=== PATIENT | female | born 1975 | race Caucasian/White ===

== ENCOUNTER 2017-01-15 19:01 | Inpatient (IN) | payer SELFPAY ==
[2017-01-15] MEDS ORDERED: ONDANSETRON HCL INJ/PF 4 MG/2 ML SDV IV ONE (19:58)
[2017-01-15] MEDS ORDERED: MORPHINE SULFATE 10 MG/ML INJ IV ONE ×2 (19:58→21:51)
--- NOTE | 2017-01-15 19:59 | ER Document Report ---
ED GI/ - General Chief Complaint: Epigastric Pain Stated Complaint: BACK PAIN Time Seen by Provider: 01/15/17 19:34 Information source: Patient TRAVEL OUTSIDE OF THE [place] IN LAST 30 DAYS: No - HPI Patient complains to provider of: Abdominal pain Onset: Just prior to arrival Timing/Duration: Sudden Quality of pain: Pressure, Sharp Severity at maximum: Severe Severity in ED: Severe Pain Level: 5 Location: Epigastric Associated symptoms: Nausea, Vomiting Exacerbated by: Denies Relieved by: Denies Similar symptoms previously: No Recently seen / treated by doctor: No Notes: 01/16/17 01:10 Patient is a 41-year-old female with no past medical history presenting to the emergency room complaining of severe epigastric abdominal pain associated with nausea and vomiting that started approximately 1 hour prior to arrival, she denies any fever, no history of similar symptoms previously, she last ate some cheese at 5:30 PM - Related Data Allergies/Adverse Reactions: codeine Allergy (Verified 01/15/17 19:17) Penicillins Allergy (Verified 01/15/17 19:17) phenytoin [From Dilantin] Allergy (Verified 01/15/17 19:17) Past Medical History - General Information source: Patient - Social History Smoking Status: Current Every Day Smoker Family History: Reviewed & Not Pertinent Renal/ Medical History: Denies: Hx Peritoneal Dialysis Review of Systems - Review of Systems Constitutional: No symptoms reported EENT: No symptoms reported Cardiovascular: No symptoms reported Respiratory: No symptoms reported Gastrointestinal: See HPI Genitourinary: No symptoms reported Female Genitourinary: No symptoms reported Musculoskeletal: No symptoms reported Skin: No symptoms reported Hematologic/Lymphatic: No symptoms reported Neurological/Psychological: No symptoms reported -: Yes All other systems reviewed and negative Physical Exam - Vital signs Vitals: Temp Pulse Resp BP Pulse Ox 98.4 F 112 H 20 99/77 L 98 01/15/17 19:19 01/15/17 19:19 01/15/17 19:19 01/15/17 19:19 01/15/17 19:19 Interpretation: Normal - General General appearance: Alert In distress: Moderate - Appears in pain - HEENT Head: Normocephalic, Atraumatic Eyes: Normal Pupils: PERRL - Respiratory Respiratory status: No respiratory distress Chest status: Nontender Breath sounds: Normal Chest palpation: Normal - Cardiovascular Rhythm: Regular Heart sounds: Normal auscultation Murmur: No - Abdominal Inspection: Normal Distension: Distended Bowel sounds: Normal Tenderness: Tender - Epigastric Organomegaly: No organomegaly - Back Back: Normal, Nontender - Extremities General upper extremity: Normal inspection, Nontender, Normal color, Normal ROM , Normal temperature General lower extremity: Normal inspection, Nontender, Normal color, Normal ROM , Normal temperature, Normal weight bearing. No: Yany's sign - Neurological Neuro grossly intact: Yes Cognition: Normal Orientation: AAOx4 Nati Coma Scale Eye Opening: Spontaneous Nati Coma Scale Verbal: Oriented Nati Coma Scale Motor: Obeys Commands Hartman Coma Scale Total: 15 Speech: Normal Motor strength normal: LUE, RUE, LLE, RLE Sensory: Normal - Psychological Associated symptoms: Normal affect, Normal mood - Skin Skin Temperature: Warm Skin Moisture: Dry Skin Color: Normal Course - Re-evaluation Re-evalutation: 01/16/17 01:11 Patient has leukocytosis, with pain in the upper abdomen, gallbladder ultrasound is unremarkable, however I was concerned for other acute abdominal pathology and sent patient for a noncontrasted CT scan, the radiologist called to report that patient has free air in the abdomen, I did reevaluate patient and she is resting comfortably with stable vital signs, the surgeon was immediately consulted who will admit patient anterior to the OR, patient does admit a history of ulcers and use of Goody powders - Vital Signs Vital signs: Temp Pulse Resp BP Pulse Ox 98.4 F 112 H 20 99/77 L 98 01/15/17 19:19 01/15/17 19:19 01/15/17 19:19 01/15/17 19:19 01/15/17 19:19 - Laboratory Result Diagrams: 01/15/17 19:50 01/15/17 19:50 Laboratory results interpreted by me: 01/15/17 01/15/17 19:50 19:50 WBC 15.4 H Absolute Neutrophils 11.8 H Glucose 120 H - Diagnostic Test Radiology reviewed: Image reviewed, Reports reviewed - EKG Interpretation by Oh EKG shows normal: Sinus rhythm Rate: Normal Rhythm: NSR - Transfer of Care Care transferred to following provider: Dr Lunsford Discharge - Discharge Clinical Impression: Perforated viscus Condition: Serious Disposition: ADMITTED INPATIENT Admitting Provider: Surgicalist Unit Admitted: Surgical Floor
[2017-01-15 20:04] LABS: ABSOLUTE BASOPHILS # (AUTO) 0.1 10^3/uL (0.0-0.2); ABSOLUTE EOSINOPHILS # (AUTO) 0.3 10^3/uL (0.0-0.6); ABSOLUTE LYMPHOCYTES (AUTO) 2.6 10^3/uL (0.5-4.7); ABSOLUTE MONOCYTES (AUTO) 0.6 10^3/uL (0.1-1.4); ABSOLUTE NEUT (AUTO) 11.8 10^3/uL (1.7-8.2); BASOPHILS % (AUTO) 0.7 % (0-2); EOSINOPHILS % (AUTO) 1.9 % (0-6); HEMATOCRIT 38.2 % (36.0-47.0); HEMOGLOBIN 13.1 g/dL (12.0-15.5); HGB HCT DIFFERENCE 1.1; MEAN CORPUSCULAR HEMOGLOBIN 32.2 pg (27.0-33.4); MEAN CORPUSCULAR HGB CONC 34.3 g/dL (32.0-36.0); MEAN CORPUSCULAR VOLUME 94 fl (80-97); MONOCYTES % (AUTO) 3.8 % (3-13); RED BLOOD COUNT 4.07 10^6/uL (3.72-5.28); RED CELL DISTRIBUTION WIDTH 13.7 % (11.5-14.0); SEGMENTED NEUTROPHILS % (AUTO) 76.6 % (42-78); WHITE BLOOD COUNT 15.4 10^3/uL (4.0-10.5)
[2017-01-15] MEDS: NORMAL SALINE 1000 ML 1,000 ML IV PRN ×2 (20:15→22:02)
[2017-01-15 20:19] LABS: ALANINE AMINOTRANSFERASE 23 U/L (9-52); ALBUMIN 4.2 g/dL (3.5-5.0); ALKALINE PHOSPHATASE 82 U/L (38-126); ANION GAP 10 (5-19); ASPARTATE AMINO TRANSFERASE 20 U/L (14-36); BILIRUBIN,DIRECT 0.4 mg/dL (0.0-0.4); BILIRUBIN,TOTAL 0.4 mg/dL (0.2-1.3); BLOOD UREA NITROGEN 9 mg/dL (7-20); CALCIUM 9.6 mg/dL (8.4-10.2); CARBON DIOXIDE 26 mmol/L (22-30); CHLORIDE 104 mmol/L (98-107); CREATININE RESULT 0.75 mg/dL (0.52-1.25); GLUCOSE 120 mg/dL (75-110); POTASSIUM 3.6 mmol/L (3.6-5.0); SODIUM 139.9 mmol/L (137-145); TOTAL PROTEIN 7.3 g/dL (6.3-8.2)
--- NOTE | 2017-01-15 21:16 | RADIOLOGY REPORT (SQ) ---
EXAM DESCRIPTION: U/S ABDOMEN LIMITED W/O DOP COMPLETED DATE/TIME: 01/15/2017 9:07 pm REASON FOR STUDY: pain COMPARISON: None. TECHNIQUE: Dynamic and static grayscale images acquired of the abdomen and recorded on PACS. Additio nal selected color Doppler and spectral images recorded. LIMITATIONS: None. FINDINGS: PANCREAS: No masses. Visualized pancreatic duct normal caliber. LIVER: No masses. Echotexture normal. LIVER VASCULATURE: Normal directional flow of the main portal vein and hepatic veins. GALLBLADDER: No stones. Normal wall thickness. No pericholecystic fluid. ULTRASOUND-DETECTED CAI'S SIGN: Negative. INTRAHEPATIC DUCTS AND COMMON DUCT: CBD and intrahepatic ducts normal caliber. No filling defects. INFERIOR VENA CAVA: Normal flow. AORTA: No aneurysm. RIGHT KIDNEY: Normal size. Normal echogenicity. No solid or suspicious masses. No hydronephrosis. No calcifications. PERITONEAL AND RIGHT PLEURAL SPACE: No ascites or effusions. OTHER: No other significant findings. IMPRESSION: NORMAL RIGHT UPPER QUADRANT ULTRASOUND. TECHNICAL DOCUMENTATION: JOB ID: [id number] [employer]- All Rights Reserved
[2017-01-15] MEDS ORDERED: NORMAL SALINE 1000 ML 1,000 ML IV PRN ×2 (21:51→23:45)
--- NOTE | 2017-01-15 23:21 | EKG REPORT ---
SEVERITY:- BORDERLINE ECG - SINUS RHYTHM PROBABLE LEFT ATRIAL ABNORMALITY : Confirmed by: Kenya Back 15-Jan-2017 23:20:22
[2017-01-15] MEDS ORDERED: CIPROFLOXACIN 400 MG/D5W RTU 400 MG/200 ML RTUPB IV ONE (23:44)
[2017-01-15] MEDS ORDERED: HYDROMORPHONE HCL INJ/PF 2 MG/ML AMPULE IV ONE (23:44)
[2017-01-15] MEDS ORDERED: METRONIDAZOLE RTU 500 MG/NS 100 ML IV ONE (23:44)
--- NOTE | 2017-01-15 23:44 | RADIOLOGY REPORT (SQ) ---
EXAM DESCRIPTION: CT LTD RENAL STONE PROTOCOL ON COMPLETED DATE/TIME: 01/15/2017 11:26 pm REASON FOR STUDY: B flank pain COMPARISON: None. TECHNIQUE: CT scan of the abdomen and pelvis performed without intravenous or oral contrast. Images reviewed with lung, soft tissue, and bone windows. Reconstructed coronal and sagittal MPR images revi ewed. All images stored on PACS. All CT scanners at this facility use dose modulation, iterative reconstruction, and/or weight based d osing when appropriate to reduce radiation dose to as low as reasonably achievable (ALARA). [facility]: Dose Right [facility]: CareDose [facility]: Dose Right [facility]: Teradose 4D [facility]: Smart Alchimer RADIATION DOSE: Up-to-date CT equipment and radiation dose reduction techniques were employed. CTDIv ol: 7.2 mGy. DLP: 416 mGy-cm.mGy. LIMITATIONS: None. FINDINGS: LOWER CHEST: Patchy parenchymal opacities at both lung bases. NON-CONTRASTED LIVER, SPLEEN, ADRENALS: Evaluation limited by lack of IV contrast. No identified sign ificant masses. PANCREAS: No masses. No peripancreatic inflammatory changes. GALLBLADDER: No identified stones by CT criteria. No inflammatory changes to suggest cholecystitis. RIGHT KIDNEY AND URETER: No suspicious masses. Assessment limited by lack of IV contrast. No signif icant calcifications. No hydronephrosis or hydroureter. LEFT KIDNEY AND URETER: No suspicious masses. Assessment limited by lack of IV contrast. No signifi cant calcifications. No hydronephrosis or hydroureter. AORTA AND RETROPERITONEUM: No aneurysm. No retroperitoneal masses or adenopathy. BOWEL AND PERITONEAL CAVITY: No obvious masses or inflammatory changes. Extensive free intraperitone al air. No identified slight of the viscus rupture. APPENDIX: Not visualized. PELVIS, BLADDER, AND ABDOMINAL WALL:Small amount of free fluid in the pelvis. The right BTL clip is in place. The left BTL clip is free within the pelvis. BONES: No significant findings. OTHER: No other significant finding. IMPRESSION: Extensive free intraperitoneal air. Left BTL clip is free within the pelvis. COMMENT: Pertinent findings on the imaging study reported as a CRITICAL RESULT to PELON BRIGGS DO at23:38 on 01/15/2017. Category of Critical Result: Free air in the abdomen TECHNICAL DOCUMENTATION: JOB ID: [id number] Quality ID # [id number]: Final reports with documentation of one or more dose reduction techniques (e.g., Au tomated exposure control, adjustment of the mA and/or kV according to patient size, use of iterative reconstruction technique) 2010 [employer]- All Rights Reserved
[2017-01-15 23:51] LABS: APPEARANCE,URINE CLOUDY; BILIRUBIN,URINE NEGATIVE (NEGATIVE); GLUCOSE, URINE NEGATIVE (NEGATIVE); KETONES,URINE NEGATIVE (NEGATIVE); LEUKOCYTE ESTERASE,URINE NEGATIVE (NEGATIVE); NITRITE,URINE NEGATIVE (NEGATIVE); PROTEIN,URINE NEGATIVE (NEGATIVE); URINE SPECIFIC GRAVITY 1.011; UROBILINOGEN,URINE NEGATIVE mg/dL (<2.0)
[2017-01-16] MEDS ORDERED: FAMOTIDINE INJ/PF 20 MG/2 ML SDV IV ONE (00:27)
[2017-01-16] MEDS ORDERED: NORMAL SALINE 1000 ML 1,000 ML IV PRN (00:43)
[2017-01-16] MEDS ORDERED: ONDANSETRON HCL INJ/PF 4 MG/2 ML SDV IV PRN (00:43)
--- NOTE | 2017-01-16 00:43 | PDOC H&P ---
History of Present Illness Admission Date/PCP: 01/15/17 23:49 Patient complains of: Sudden onset of severe abdominal pain 7 hours prior to admission History of Present Illness: MARK COLEY is a 41 year old female 7 hour history of severe abdominal pain. Found to have an acute abdomen secondary to perforated PUD secondary to abuse of "Goody Powders: or powdered ASA. Pt. to be taken to O.R for Prieto Patch or omental plication of perforated PUD. Dictation # [id number] Social History Smoking Status: Current Every Day Smoker Family History Parental Family History Reviewed: No Children Family History Reviewed: No Sibling(s) Family History Reviewed.: No Medication/Allergy Allergies/Adverse Reactions: codeine Allergy (Verified 01/15/17 19:17) Penicillins Allergy (Verified 01/15/17 19:17) phenytoin [From Dilantin] Allergy (Verified 01/15/17 19:17) Physical Exam Vital Signs: Temp Pulse Resp BP Pulse Ox 98.4 F 112 H 20 99/77 L 98 01/15/17 19:19 01/15/17 19:19 01/15/17 19:19 01/15/17 19:19 01/15/17 19:19 General appearance: PRESENT: severe distress Eye exam: PRESENT: conjunctiva pink Mouth exam: PRESENT: moist, neck supple Neck exam: PRESENT: full ROM. ABSENT: JVD, lymphadenopathy, tenderness, thyromegaly, tracheal deviation Cardiovascular exam: PRESENT: tachycardia GI/Abdominal exam: PRESENT: diminished bowel sounds, firm, guarding, rebound, tenderness Psychiatric exam: PRESENT: anxious Results Impressions: Abdomen Ultrasound 01/15/17 19:58 IMPRESSION: NORMAL RIGHT UPPER QUADRANT ULTRASOUND. Limited or Localized CT 01/15/17 21:51 IMPRESSION: Extensive free intraperitoneal air. Left BTL clip is free within the pelvis. Assessment & Plan - Plan Summary Plan Summary: Exploratory lap for perforated viscus
[2017-01-16] MEDS ORDERED: PHARMACY COMMUNICATION ORDER MC NR (00:45)
[2017-01-16] MEDS ORDERED: FENTANYL CITRATE INJ/PF 100 MCG/2 ML AMPUL ONE ×2 (01:11)
[2017-01-16] MEDS ORDERED: MIDAZOLAM 2 MG/2 ML INJ ONE (01:12)
[2017-01-16] MEDS ORDERED: PROPOFOL INJ 200 MG/20 ML VIAL IV ONE (01:12)
[2017-01-16] MEDS ORDERED: ACETAMINOPHEN 100 ML IV ONE (01:12)
[2017-01-16] MEDS ORDERED: MORPHINE SULFATE 10 MG/ML INJ ONE (01:12)
--- NOTE | 2017-01-16 01:47 | HISTORY AND PHYSICAL E ---
History and Physical NAME: MARK COLEY : 1975 AGE: 41Y ADMITTED: 01/16/2017 ROOM: ED14 REASON FOR ADMISSION: Perforated peptic ulcer disease. HISTORY OF PRESENT ILLNESS: This 41-year-old female was in her usual state of health until approximately 5:00 this evening, when she developed the sudden onset of upper abdominal pain without nausea or vomiting. Patient states the pain radiates to her shoulders, and is 9/10 in intensity. The patient presented to the emergency room in acute distress. Patient denies any previous history of such pain, and denies any melena, hematemesis, coffee-ground vomitus, or hematochezia. Of note, the patient takes Goody's Powder or crushes aspirin to an excess degree for various pains in her back, feet, etc. 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 Patient, again, presented to the hospital in acute distress, and on examination was found to have markedly tender abdomen with guarding and rebound. The patient underwent laboratory evaluation patient's electrolytes were essentially within normal limits except for elevated glucose at 120, and the patient's CT scan of the abdomen revealed extensive free intraperitoneal air, suggesting peptic ulcer disease. For this reason, a Surgical referral was made. PAST MEDICAL HISTORY: Patient denies any diabetes mellitus, hypertension, cardiac, renal, pulmonary, or liver disease. There is no history of any bleeding tendency or anesthesia problems in her family. ALLERGIES: Patient is allergic to codeine, penicillin, and Dilantin. REVIEW OF SYSTEMS: Patient has no symptoms referable to the ears, nose, and throat, respiratory, cardiovascular, or genitourinary systems. No history of any problems related to the integumentary, lymphatic, endocrine, or psychiatric systems. Patient does have a history of abdominal pain as of late, and complains of continued back pain and pain in her feet for which takes the crushed aspirin. PHYSICAL EXAMINATION: GENERAL: Reveals a 41-year-old female who is normally nourished, normally developed, who is in moderate distress. VITAL SIGNS: Temperature 98.4, heart rate 112, blood pressure 99/77, respirations are 20. HEENT: There is no conjunctival pallor or scleral icterus. Mucous membranes are moist and pink. NECK: Supple without nodes, masses, thyromegaly, JVD, or bruits. Trachea is midline. CHEST WALL: Shows good excursion. LUNGS: Clear anteriorly with good air entry bilaterally. CARDIOVASCULAR: Patient is tachycardic. Patient appeared to be in sinus tach. There are no murmurs or gallops. ABDOMEN: Flat, soft, with marked epigastric and upper abdominal tenderness with guarding and rebound. Bowel sounds are hypoactive. There are no hernias or bruits. No abdominal scars are noted. EXTREMITIES: Full range of motion without edema or tenderness. LABORATORY DATA: Has been reviewed, as noted above. CT scan has been reviewed. IMPRESSION: Pneumoperitoneum secondary to presumed perforated peptic ulcer disease secondary to abuse of crushed aspirin. PLAN: Patient is to be taken to the OR for exploratory laparotomy for perforated viscus with a Prieto patch or omental plication of presumed perforated peptic ulcer disease. DICTATING PHYSICIAN: MARY JANE BRAVO M.D. [id number] PHY#: [id number] ID: [id number] JOB#: [id number] ACCT: [id number] cc: >
[2017-01-16] MEDS ORDERED: FENTANYL CITRATE INJ/PF 100 MCG/2 ML AMPUL IV PRN ×3 (02:00)
[2017-01-16] MEDS ORDERED: MORPHINE SULFATE 10 MG/ML INJ IV PRN (02:00)
[2017-01-16] MEDS ORDERED: PROMETHAZINE HCL INJ 25 MG/1 ML VIAL IV PRN ×2 (02:00)
[2017-01-16] MEDS ORDERED: MEPERIDINE HCL/PF INJ 25 MG/1 ML DISP.SYRIN IV PRN (02:00)
[2017-01-16] MEDS ORDERED: DIPHENHYDRAMINE HCL 50 MG/ML VIAL IV PRN (02:00)
--- NOTE | 2017-01-16 02:30 | Brief Operative Note ---
BRIEF OPERATIVE REPORT DATE OF SURGERY: 01/16/17 TIME OF SURGERY: 02:00 PREOPERATIVE DIAGNOSIS: Perforated peptic (Gastric) ulcer POSTOPERATIVE DIAGNOSIS: Same SURGEON: MARY JANE BRAVO 1ST PHYSIOTHERAPY PRACTICE MANAGER: SHERRI MEJIAS FINDINGS: Perforarted gastric ulcer COMPLICATIONS: None ESTIMATED BLOOD LOSS: 1cc TISSUE REMOVED OR ALTERED: None TECHNICAL PROCEDURE: Omental Plication of perforated gastric ulcer (Prieto Patch )
[2017-01-16] MEDS: FENTANYL CITRATE INJ/PF 100 MCG/2 ML AMPUL ONE ×2 (02:32→02:37)
--- NOTE | 2017-01-16 03:07 | OPERATIVE REPORT E ---
Operative Report NAME: MARK COLEY : 1975 AGE: 41Y DATE OF SURGERY: 01/16/2017 ROOM: ED14 PREOPERATIVE DIAGNOSIS: PERFORATED GASTRIC ULCER. POSTOPERATIVE DIAGNOSIS: PERFORATED GASTRIC ULCER. OPERATION: Omental plication of perforated gastric ulcer or Prieto patch closure. SURGEON: MARY JANE BRAVO M.D. ANESTHESIA: General. COMPUTER SYSTEMS MANAGER: Mr. Heriberto Romo. REPLACEMENT: Crystalloids. DRAINS: None. COMPLICATIONS: None. CONDITION: Stable. FINDINGS: The patient had a 4 mm perforation of the anterior wall of the stomach with minimal contamination. There was surrounding exudate at the perforation site, but with minimal free fluid contamination. 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 The patient presented to the emergency room with a 7-hour history of sudden onset of epigastric pain and was found to have an acute abdomen. The patient was tachycardic at 115 on admission and CAT scan of the abdomen revealed pneumoperitoneum. The patient was taken immediately to the operating room for surgical intervention. PROCEDURE: The patient was brought to the operating room suite and was placed in the supine position on the operating room table. Monitoring devices were attached. IV sedation was administered, followed by the induction of general endotracheal anesthesia. The patient's abdomen was prepped and draped in the usual sterile manner and then a time-out was achieved. Once all had concurred, a midline incision was made extending from the xiphisternum to the supraumbilical area. Incision was carried through the skin and subcutaneous tissue, down to the linea alba. The linea alba was divided. Preperitoneal fat was and then the peritoneum was grasped and opened and the abdominal cavity was entered. There was a small gush of air as we opened up the peritoneal cavity. We grasped the stomach with a Cheryl and retracted it inferiorly and laterally exposing the perforation at the body of the stomach. There was surrounding exudate only. There was only a small amount of free purulent fluid and that was suctioned out. Once the perforation was identified, we then placed a tongue of omentum directly over the perforation and secured it using silk suture. After securing the tongue of omentum and performing omental plication or Prieto patch closure of the ulcer, we then filled the stomach with air through the nasogastric tube which was advanced into the pyloric channel and with filling the stomach with air, we placed saline in the abdomen to make sure that there was no air leak. Once this was established that there was no leak, we then irrigated the abdomen with 2 liters of saline and once adequate hemostasis was assured, we then proceeded to close the abdomen. We closed the fascia using #1 PDS. Subcutaneous tissue was approximated using 2-0 Vicryl and the skin was approximated using skin guzman. The patient tolerated the procedure well. Sponge and instrument count was correct. The patient was discharged to the PACU in stable condition. DICTATING PHYSICIAN: MARY JANE BRAVO M.D. [id number] PHY#: [id number] ID: [id number] JOB#: [id number] ACCT: [id number] cc:MARY JANE BRAVO M.D. >
[2017-01-16] MEDS: MORPHINE SULFATE 10 MG/ML INJ IV PRN ×2 (04:12→21:27)
[2017-01-16] MEDS: METRONIDAZOLE 500 MG/NS RTU 100 ML IV SCH ×4 (06:07→23:40)
[2017-01-16] MEDS ORDERED: NEOSTIGMINE METHYLSULFATE 10 MG/10 ML VIAL ONE (07:30)
[2017-01-16] MEDS ORDERED: ROCURONIUM BROMIDE INJ 50 MG/5 ML VIAL IV ONE (07:30)
[2017-01-16] MEDS ORDERED: GLYCOPYRROLATE INJ 0.4 MG/2 ML VIAL ONE (07:30)
[2017-01-16] MEDS ORDERED: ONDANSETRON HCL INJ/PF 4 MG/2 ML SDV ONE (07:30)
[2017-01-16] MEDS ORDERED: DEXAMETHASONE SOD PHOSPHATE INJ 4 MG/1 ML VIAL ONE (07:30)
[2017-01-16] MEDS ORDERED: SUCCINYLCHOLINE CHLORIDE INJ 200 MG/10 ML VIAL ONE (07:30)
[2017-01-16] MEDS: KETOROLAC TROMETHAMINE INJ/PF 30 MG/1 ML SDV IV PRN ×2 (08:41→14:35)
[2017-01-16] MEDS: CIPROFLOXACIN 400 MG/D5W RTU 400 MG/200 ML RTUPB IV SCH ×2 (09:13→21:50)
[2017-01-16] MEDS: FAMOTIDINE INJ/PF 20 MG/2 ML SDV IV SCH ×2 (09:13→21:50)
--- NOTE | 2017-01-16 13:55 | PDOC PROGRESS REPORT ---
Subjective Progress Note for:: 01/16/17 Subjective:: Patient is feeling better, wants something to drink. Physical Exam Vital Signs: Temp Pulse Resp BP Pulse Ox 97.7 F 81 19 106/57 L 97 01/16/17 11:27 01/16/17 11:27 01/16/17 11:27 01/16/17 11:27 01/16/17 11:27 Intake & Output 01/15/17 01/16/17 01/17/17 06:59 06:59 06:59 Intake Total 1400 Output Total 150 300 Balance 1250 -300 Weight 75.1 kg General appearance: PRESENT: no acute distress Eye exam: PRESENT: conjunctiva pink Mouth exam: PRESENT: moist, neck supple Respiratory exam: PRESENT: clear to auscultation karen Cardiovascular exam: PRESENT: RRR GI/Abdominal exam: PRESENT: hypoactive bowel sounds, soft, tenderness - Incisional tenderness only. Incision is clean/dry/intact.. ABSENT: distended, guarding Results Impressions: Abdomen Ultrasound 01/15/17 19:58 IMPRESSION: NORMAL RIGHT UPPER QUADRANT ULTRASOUND. Limited or Localized CT 01/15/17 21:51 IMPRESSION: Extensive free intraperitoneal air. Left BTL clip is free within the pelvis. Assessment & Plan - Plan Summary Plan Summary: We will allow ice chips, and sips of tea and water, as she has an NG tube in her distal stomach.When flatus passed, we will clamp NG tube and start clear liquid diet.
[2017-01-16] MEDS ORDERED: LIDOCAINE 2% VISCOUS SOLN 20 ML UDCUP PO PRN (15:05)
[2017-01-17] MEDS: METRONIDAZOLE 500 MG/NS RTU 100 ML IV SCH ×4 (06:01→23:31)
[2017-01-17] MEDS: KETOROLAC TROMETHAMINE INJ/PF 30 MG/1 ML SDV IV PRN ×2 (08:51→17:00)
[2017-01-17] MEDS: FAMOTIDINE INJ/PF 20 MG/2 ML SDV IV SCH ×2 (10:20→21:45)
[2017-01-17] MEDS: CIPROFLOXACIN 400 MG/D5W RTU 400 MG/200 ML RTUPB IV SCH ×2 (10:20→21:45)
[2017-01-17] MEDS ORDERED: MORPHINE SULFATE 10 MG/ML INJ IV PRN (11:09)
--- NOTE | 2017-01-17 11:41 | PDOC PROGRESS REPORT ---
Subjective Progress Note for:: 01/17/17 Subjective:: Pt. is w/o c/o. No flatus yet. Physical Exam Vital Signs: Temp Pulse Resp BP Pulse Ox 98.6 F 83 18 104/68 100 01/17/17 07:49 01/17/17 07:49 01/17/17 07:49 01/17/17 07:49 01/17/17 08:24 Intake & Output 01/16/17 01/17/17 01/18/17 06:59 06:59 06:59 Intake Total 1400 3250 Output Total 150 2425 300 Balance 1250 825 -300 Weight 75.1 kg 84.7 kg General appearance: PRESENT: no acute distress Respiratory exam: PRESENT: clear to auscultation karen GI/Abdominal exam: PRESENT: normal bowel sounds, soft. ABSENT: distended, guarding, rebound, tenderness Results Impressions: Abdomen Ultrasound 01/15/17 19:58 IMPRESSION: NORMAL RIGHT UPPER QUADRANT ULTRASOUND. Limited or Localized CT 01/15/17 21:51 IMPRESSION: Extensive free intraperitoneal air. Left BTL clip is free within the pelvis. Assessment & Plan - Plan Summary Plan Summary: Will start C.L. diet and clamp NGT when flatus passed.
[2017-01-18] MEDS: METRONIDAZOLE 500 MG/NS RTU 100 ML IV SCH ×2 (05:45→13:50)
[2017-01-18] MEDS: KETOROLAC TROMETHAMINE INJ/PF 30 MG/1 ML SDV IV PRN (09:46)
[2017-01-18] MEDS: FAMOTIDINE INJ/PF 20 MG/2 ML SDV IV SCH (09:48)
[2017-01-18] MEDS: CIPROFLOXACIN 400 MG/D5W RTU 400 MG/200 ML RTUPB IV SCH (09:54)
[2017-01-18 13:04] VITALS: BP 111/62
--- NOTE | 2017-01-18 14:37 | DISCHARGE SUMMARY E ---
Discharge Summary NAME: MARK COLEY : 1975 AGE: 41Y ADMITTED: 01/16/2017 DISCHARGED: 01/18/2017 DISCHARGE DIAGNOSIS: Status post omental plication of perforated gastric ulcer. HOSPITAL COURSE: This 41-year-old female experienced sudden onset of acute abdominal pain of significant intensity. Patient was seen in the emergency room where she was in acute distress and had peritoneal signs. Patient underwent a CT scan of the abdomen which revealed intraperitoneal free air. Patient was taken to the operating room where she underwent omental plication for perforated gastric ulcer that was secondary to the use and abuse of Goody's Powder or powdered aspirin. The patient's postoperative course was uneventful. She was transferred to the [facility] postoperatively and monitored. Patient had nasogastric tube removed on the second postop day and was started on clear liquid diet which she tolerated well. Patient is now on a regular diet and is having good bowel function. Patient's abdomen is soft with mild incisional tenderness. The incision is clean, dry, and intact. Patient is now discharged home on Nexium and Percocet, and patient will be followed in the [facility] in 7-10 days for staple removal. Patient has been counseled with regards to the use of powdered aspirin and has been told that she is to discontinue ever using that again and has been advised to stop smoking and drinking for at least a month or more as she is being treated with Nexium for her perforated gastric ulcer. The patient is now discharged home and will be followed in the [facility] in 7-10 days. DICTATING PHYSICIAN: MARY JANE BRAVO M.D. [id number] Y#: [id number] ID: [id number] JOB#: [id number] ACCT: [id number] cc:MARY JANE BRAVO M.D. >
== END 2017-01-18 15:15 | disposition home or self-care (01) | DRG 331 ==
LOC: ER 19:01 → EH 23:49 → UNDOADMIN 23:49 → EH 01-16 00:43 → 3N 01-16 03:15
PROVIDERS: ADMIT Surgery; ATTEND Surgery
PROC: 0D9670Z Drainage of Stomach with Drainage Device, Via Natural or Artificial Opening (ICD-10-PCS; 2017-01-16)
PROC: 0DU907Z Supplement Duodenum with Autologous Tissue Substitute, Open Approach (ICD-10-PCS; principal; 2017-01-16 01:30)
DX: K25.5 Chronic or unspecified gastric ulcer with perforation (principal); T39.015A Adverse effect of aspirin, initial encounter; Z87.891 Personal history of nicotine dependence; Z88.6 Allergy status to analgesic agent; Z88.0 Allergy status to penicillin; Z88.8 Allergy status to other drugs, medicaments and biological substances
CPT/HCPCS: 36415; 76380; 76705; 790; 80053; 81001; 81025; 83690; 85025; 93005; 93010; 96361; 96374; 96375; 96376; 99285; J0131; J0330; J0744; J1100; J1170; J1885; J2250; J2270; J2405; J2704; J3010; J3490; J7030; S0028